=== PATIENT | female | born 1990 | race Caucasian/White ===

== ENCOUNTER 2021-12-15 12:40 | Inpatient (IN) | payer OTHER, SELFPAY ==
[2021-12-15 12:56] VITALS: BP 139/80; PULSE 77; RESP 16; TEMP 36.6; O2SAT 97; BMI 47.2
--- NOTE | 2021-12-15 13:35 | ED_ITS ---
HPI - General Adult General Chief complaint: Psychiatric Symptoms <LUIS Thomas - Last Filed: 12/15/21 16:41> Stated complaint: crisis <LUIS Thomas - Last Filed: 12/15/21 16:41> Time Seen by Provider: 12/15/21 13:33 <LUIS Thomas Last Filed: 12/15/21 16:41> Source: patient <LUIS Thomas Last Filed: 12/15/21 16:41> Mode of arrival: ambulatory <LUIS Thomas Last Filed: 12/15/21 16:41> Limitations: no limitations <LUIS Thomas Last Filed: 12/15/21 16:41> History of Present Illness HPI narrative: Patient is a 31 year old assigned female with a history of depression presenting to the emergency department today with recent recurrent thoughts of self-harm. Patient states that lately she has been having an increase in frequency of thoughts about harming herself. Patient states that she could never do it because of her son but she called crisis and they recommended she come to the ER. Patient states that she would like to be evaluated on an inpatient basis. Patient denies any dizziness, lightheadedness, abdominal pain, nausea, vomiting, fever, chills, blurry vision, double vision, loss of vision, chest pain, difficulty breathing, shortness of breath, back pain, night sweats, pain with urination, increased urinary frequency, increased urinary urgency, blood in her urine or stool, syncope or a near syncopal episode, recent trauma or falls, bowel incontinence, bladder incontinence, bowel retention, bladder retention, or any other complaints at this time. <LUIS Thomas - Last Filed: 12/15/21 16:41> Onset (ago): day(s) <LUIS Thomas - Last Filed: 12/15/21 16:41> Severity: moderate <LUIS Thomas Last Filed: 12/15/21 16:41> Severity scale (1-10): 6 <LUIS Thomas Last Filed: 12/15/21 16:41> Relieving factors: none <LUSI Thomas Last Filed: 12/15/21 16:41> Exacerbating factors: none <LUIS Thomas Last Filed: 12/15/21 16:41> Associated symptoms: denies other symptoms <LUIS Thomas Last Filed: 12/15/21 16:41> Treatments prior to arrival: none <LUIS Thomas Last Filed: 12/15/21 16:41> Related Data Home medications: Home Medications Medication Instructions Recorded Confirmed acetazolamide 250 mg tablet 125 mg PO QAM 12/15/21 12/15/21 acetazolamide 250 mg tablet 250 mg PO 1700 12/15/21 12/15/21 dextroamphetamine-amphetamine ER 1 cap PO QAM 12/15/21 12/15/21 20 mg 24hr capsule,extend release (Adderall XR) lisdexamfetamine 70 mg capsule 1 cap PO QAM 12/15/21 12/15/21 (Vyvanse) lorazepam 1 mg tablet 0.5 - 1 tab PO DAILY PRN anxiety 12/15/21 12/15/21 attack pantoprazole 40 mg tablet,delayed 0.5 tab PO BID 12/15/21 12/15/21 release <LUIS Thomas Last Filed: 12/15/21 16:41> Allergies/adverse reactions: Allergies Allergy/AdvReac Type Severity Reaction Status Date / Time lamotrigine [From LAMICTAL] Allergy Unknown RASH Unverified 11/21/19 17:55 Sulfa (Sulfonamide Allergy Unknown UNKNOWN, Unverified 11/21/19 17:55 Antibiotics) hives [SULFA (SULFONAMIDE ANTIBIOTICS)] From NOVOCAIN Allergy Severe HIVES Uncoded 11/21/19 17:55 Novocain Allergy Unknown hives Uncoded 04/16/19 00:00 <LUIS Thomas Last Filed: 12/15/21 16:41> Review of Systems Constitutional: Constitutional: Reports no additional constitutional complaints, Denies chills, Denies fever(s) and Denies night sweats <LUIS Thomas Last Filed: 12/15/21 16:41> Eyes: Eyes: Reports no additional eye complaints, Denies blurry vision, Denies change in vision, Denies diplopia, Denies eye discharge, Denies loss of vision and Denies eye pain <LUIS Thomas Last Filed: 12/15/21 16:41> ENT: Denies dizziness <LUIS Thomas - Last Filed: 12/15/21 16:41> Cardiovascular: Cardiovascular: Reports no additional cardiovascular complaints, Denies chest pain, Denies lightheadedness, Denies Loss of Consciousness and Denies dyspnea <LUIS Thomas - Last Filed: 12/15/21 16:41> Respiratory: Respiratory: Reports no additional respiratory complaints and Denies dyspnea <LUIS Thomas - Last Filed: 12/15/21 16:41> Gastrointestinal: Gastrointestinal: Reports no additional gastrointestinal complaints, Denies abdominal pain, Denies melena, Denies hematochezia, Denies change in bowel habits and Denies change in stool character <LUIS Thomas - Last Filed: 12/15/21 16:41> Genitourinary: Genitourinary: Denies hematuria, Denies urinary frequency, Denies dysuria, Denies urinary incontinence, Denies urinary hesitancy and Denies urinary urgency <LUIS Thomas - Last Filed: 12/15/21 16:41> Musculoskeletal: Musculoskeletal: Reports no additional musculoskeletal complaints, Denies numbness and Denies tingling <LUIS Thomas - Last Filed: 12/15/21 16:41> Neurologic: Denies dizziness, Denies loss of vision, Denies numbness and Denies tingling <LUIS Thomas - Last Filed: 12/15/21 16:41> Psychiatric: Psychiatric: Reports no additional psychiatric complaints and Reports suicidal ideation <LUIS Thomas Last Filed: 12/15/21 16:41> Endocrine: Endocrine: Reports no additional endocrine complaints <LUIS Thomas - Last Filed: 12/15/21 16:41> Hematologic/Lymphatic: Hematologic/Lymphatic: Reports no additional hemat ologic/lymphatic complaints <LUIS Thomas - Last Filed: 12/15/21 16:41> Allergic/Immunologic: Allergic/Immunologic: Reports no additional allergic/immunologic complaints <LUIS Thomas Last Filed: 12/15/21 16:41> PMFSH Past Medical History Attestation statement: The following information was validated with the patient. <LUIS Thomas - Last Filed: 12/15/21 16:41> Source: old records reviewed <LUIS Thomas - Last Filed: 12/15/21 16:41> Medical History: Medical History Acid reflux ADHD Anxiety Bipolar 1 disorder Depression PTSD (post-traumatic stress disorder) <LUIS Thomas - Last Filed: 12/15/21 16:41> Social History Social History: Social History Alcohol intake: never Patient Tobacco Use Status: Current everyday Tobacco user Smoked in Last 30 Days: No Use of substances other than those prescribed or required for medical reasons: Yes Substance Use Type: IV Drugs Substance Use Frequency: Occasionally Advance Directives: No Healthcare Proxy: No Guardian: No <LUIS Thomas - Last Filed: 12/15/21 16:41> Physical Exam ED Vital Signs: Vital Signs - 24 hr 12/15/21 12:56 12/15/21 14:42 12/15/21 16:00 Temperature 97.9 F 98.1 F 98.0 F Pulse Rate 77 81 83 Respiratory Rate 16 16 16 Blood Pressure 139/80 147/92 H 131/75 Pulse Oximetry 97 97 97 Oxygen Delivery Method Room Air Room Air Room Air 12/15/21 18:00 12/16/21 00:51 Temperature 98.4 F 97.7 F Pulse Rate 73 63 Respiratory Rate 16 16 Blood Pressure 134/74 122/71 Pulse Oximetry 99 98 Oxygen Delivery Method Room Air Room Air BMI result Body Mass Index 47.2 <LUIS Thomas - Last Filed: 12/15/21 16:41> Vital Signs - 24 hr 12/15/21 12:56 12/15/21 14:42 12/15/21 16:00 Temperature 97.9 F 98.1 F 98.0 F Pulse Rate 77 81 83 Respiratory Rate 16 16 16 Blood Pressure 139/80 147/92 H 131/75 Pulse Oximetry 97 97 97 Oxygen Delivery Method Room Air Room Air Room Air 12/15/21 18:00 12/16/21 00:51 Temperature 98.4 F 97.7 F Pulse Rate 73 63 Respiratory Rate 16 16 Blood Pressure 134/74 122/71 Pulse Oximetry 99 98 Oxygen Delivery Method Room Air Room Air BMI result Body Mass Index 47.2 <Janel Nettles MD - Last Filed: 12/16/21 07:09> Const General: cooperative, no acute distress, alert and awake <LUIS Thomas - Last Filed: 12/15/21 16:41> Nutritional Appearance: well nourished <LUIS Thomas - Last Filed: 12/15/21 16:41> Orientation/consciousness: patient oriented x3 <LUIS Thomas - Last Filed: 12/15/21 16:41> Limitations: no limitations <LUIS Thomas - Last Filed: 12/15/21 16:41> HENMT Head: Yes normal to inspection and Yes atraumatic <LUIS Thomas - Last Filed: 12/15/21 16:41> Ears: hearing grossly normal bilaterally and external ears normal <LUIS Thomas - Last Filed: 12/15/21 16:41> General nose exam: Normal external nose present, no nasal discharge noted and no epistaxis <LUIS Thomas - Last Filed: 12/15/21 16:41> Face and sinus: Yes normal facial exam, No abrasion and No laceration <LUIS Thomas - Last Filed: 12/15/21 16:41> Mouth: Normal oral and palatal mucosa present, no drooling and no muffled voice <LUIS Thomas - Last Filed: 12/15/21 16:41> Eyes General: appearance normal, both eyes and all related structures <LUIS Thomas - Last Filed: 12/15/21 16:41> Periorbital: periorbital findings normal <LUIS Thomas - Last Filed: 12/15/21 16:41> Eyelids: Yes eyelids normal <LUIS Thomas - Last Filed: 12/15/21 16:41> Conjunctivae: conjunctivae normal <LUIS Thomas - Last Filed: 12/15/21 16:41> Pupils: Equal, round and reactive pupils present <LUIS Thomas - Last Filed: 12/15/21 16:41> EOM: EOMs intact bilaterally <LUIS Thomas - Last Filed: 12/15/21 16:41> Neck Neck: Yes normal visual inspection, Yes full ROM and Yes no lymphadenopathy <Carmencita Welch PA - Last Filed: 12/15/21 16:41> Chest Chest palpation & inspection: normal inspection of the chest <Carmencita Welch PA - Last Filed: 12/15/21 16:41> Resp Effort & Inspection: normal respiratory effort and able to speak in complete sentences <Carmencita Welch PA - Last Filed: 12/15/21 16:41> Auscultation: clear to auscultation bilaterally <Carmencita Welch PA - Last Filed: 12/15/21 16:41> Cardio Rate: regular rate <Carmencita Welch PA - Last Filed: 12/15/21 16:41> Rhythm: regular rhythm <Carmencita Welch PA - Last Filed: 12/15/21 16:41> GI Inspection: Yes normal to inspection <Carmencita Welch PA - Last Filed: 12/15/21 16:41> Neuro General: patient oriented x3 and moves all extremities <Carmencita Welch PA - Last Filed: 12/15/21 16:41> Cranial nerves: Yes Equal, round and reactive pupils present <Carmencita Welch PA - Last Filed: 12/15/21 16:41> Cognition (Neuro): normal cognition <Carmencita Welch PA - Last Filed: 12/15/21 16:41> Motor exam (neuro): 5/5 motor strength present throughout <Carmencita Welch PA - Last Filed: 12/15/21 16:41> Sensory Exam: Normal double simultaneous stimulation for sensation <Carmencita Welch PA - Last Filed: 12/15/21 16:41> Coordination: [id number] test normal <Carmencita Welch PA - Last Filed: 12/15/21 16:41> Extrem General: Yes normal to inspection, Yes full ROM and Yes capillary refill normal <Carmencita Welch PA - Last Filed: 12/15/21 16:41> Psych Appearance: grossly normal <Carmencita Welch PA - Last Filed: 12/15/21 16:41> Mental Status: mental status grossly normal <Carmencita WelchLUIS - Last Filed: 12/15/21 16:41> Affect: normal affect <LUIS Thomas - Last Filed: 12/15/21 16:41> Attitude: cooperative <LUIS Thomas - Last Filed: 12/15/21 16:41> Thought process: Normal thought process present <LUIS hTomas - Last Filed: 12/15/21 16:41> Thought content: Depressive thoughts present <LUIS Thomas - Last Filed: 12/15/21 16:41> Insight: Good insight present (Psych) <LUIS Thomas - Last Filed: 12/15/21 16:41> Course Reevaluation(s) Reevaluation #1: 31-year-old female with presentation for depression, crisis, on a Section 12, awaiting behavioral evaluation, no acute events overnight. Continue physician observation. <Janel Nettles MD - Last Filed: 12/16/21 07:09> Time: 07:08 <Janel Nettles MD - Last Filed: 12/16/21 07:09> Medical Decision Making MDM Narrative Medical decision making narrative: Patient is a 31 year old assigned female with a history of depression presenting to the emergency department today with increased depression and thoughts of harming herself. Patient's physical exam was unremarkable. Patient's blood work was unremarkable. I explained my physical exam findings as well as a ll test results to the patient. I answered all questions asked by the patient. Patient was evaluated by the CARE team who recommended inpatient admission which the patient agreed with. <LUIS Thomas - Last Filed: 12/15/21 16:41> Medical Records Medical records reviewed: Yes I reviewed the patient's medical records. <LUIS Thomas - Last Filed: 12/15/21 16:41> Lab Data Lab results reviewed: Yes I reviewed the patient's lab results. <LUIS Thomas - Last Filed: 12/15/21 16:41> Result diagrams: : 12/15/21 13:53 12/15/21 13:53 <LUIS Thomas - Last Filed: 12/15/21 16:41> Labs: Lab Results 12/15/21 12/15/21 12/15/21 Range/Units 13:53 13:53 14:21 WBC 10.5 (4.8-10.8) X10*3/uL RBC 4.37 (4.20-5.50) X10*6/uL Hgb 12.6 (12.0-16.0) g/dl Hct 38.4 (37.0-47.0) % MCV 87.9 (80.0-98.0) fL MCH 28.8 (27.0-33.0) pg MCHC 32.8 (31.0-35.0) g/dl RDW 14.3 (11.0-16.0) % Plt Count 316 (160-400) X10*3/uL MPV 9.3 L (9.4-12.3) fL Immature Gran % (Auto) 0.2 (0.0-0.4) % Neut % (Auto) 64.5 (45-73) % Lymph % (Auto) 26.9 (20-40) % Braxton % (Auto) 5.1 (2-11) % Eos % (Auto) 2.8 (0-4) % Baso % (Auto) 0.5 (0-2) % Lymph # (Auto) 2.8 (1.2-4.9) X10*3/uL Braxton # (Auto) 0.5 (0.1-1.2) X10*3/uL Eos # (Auto) 0.3 (0.0-0.4) X10*3/uL Baso # (Auto) 0.1 (0.0-0.2) X10*3/uL Abs Immat Gran (auto) 0.02 (0.00-0.03) X10*3/uL Absolute Neuts (auto) 6.8 (2.0-8.3) x10*3/uL Absolute Nucleated RBC 0.000 (0.0-0.012) X10*3/uL Nucleated RBC % (auto) 0.0 (0.0-0.2) /100WBC Sodium 141 (135-145) mmol/L Potassium 3.9 (3.3-5.1) mmol/L Chloride 105 (96-108) mmol/L Carbon Dioxide 24 (22-29) mmol/L Anion Gap 16 (12-20) BUN 7 L (9-16) mg/dL Creatinine 0.82 (0.5-1.4) mg/dL Estim Creat Clear Calc 117.2 Estimated GFR > 60 Random Glucose 106 (60-115) mg/dL Calcium 9.6 (8.4-10.2) mg/dL Total Bilirubin 0.2 (0.0-1.0) mg/dL AST 13 (5-31) U/L ALT 13 (0-31) U/L Alkaline Phosphatase 113 (39-117) U/L Total Protein 7.3 (6.5-8.0) g/dL Albumin 4.0 (3.5-5.0) g/dL Urine Color Urine Appearance Urine pH (5.0-9.0) Ur Specific [place] (1.005-1.025) Urine Protein (Neg-Trace) mg/dL Urine Glucose (UA) (Negative) mg/dL Urine Ketones (Negative) mg/dL Urine Blood (Negative) Urine Nitrite (Negative) Ur Leukocyte Esterase (Negative) Urine RBC (0-2) /HPF Urine WBC (0-5) /HPF Ur Squamous Epith Cells (0-2) /HPF Urine Bacteria (None Seen) Hyaline Casts (0-2) /LPF Urine Test (NEGATIVE) Salicylates < 5.0 L (15-30) mg/dL Urine Opiates Screen Not Detected (Not Detect) Urine Fentanyl Screen Not Detected (Not Detect) Acetaminophen < 1 (<30) mcg/mL Ur Barbiturates Screen Not Detected (Not Detect) Ur Phencyclidine Scrn Not Detected (Not Detect) Ur Amphetamines Screen POSITIVE H (Not Detect) U Benzodiazepines Scrn Not Detected (Not Detect) Urine Cocaine Screen Not Detected (Not Detect) U Marijuana (THC) Screen Not Detected (Not Detect) Ethyl Alcohol < 10 mg/dL COVID-19 ([facility]) (Negative) COVID-19 Clin Com 12/15/21 12/15/21 12/15/21 Range/Units 14:28 14:28 20:02 WBC (4.8-10.8) X10*3/uL RBC (4.20-5.50) X10*6/uL Hgb (12.0-16.0) g/dl Hct (37.0-47.0) % MCV (80.0-98.0) fL MCH (27.0-33.0) pg MCHC (31.0-35.0) g/dl RDW (11.0-16.0) % Plt Count (160-400) X10*3/uL MPV (9.4-12.3) fL Immature Gran % (Auto) (0.0-0.4) % Neut % (Auto) (45-73) % Lymph % (Auto) (20-40) % Braxton % (Auto) (2-11) % Eos % (Auto) (0-4) % Baso % (Auto) (0-2) % Lymph # (Auto) (1.2-4.9) X10*3/uL Braxton # (Auto) (0.1-1.2) X10*3/uL Eos # (Auto) (0.0-0.4) X10*3/uL Baso # (Auto) (0.0-0.2) X10*3/uL Abs Immat Gran (auto) (0.00-0.03) X10*3/uL Absolute Neuts (auto) (2.0-8.3) x10*3/uL Absolute Nucleated RBC (0.0-0.012) X10*3/uL Nucleated RBC % (auto) (0.0-0.2) /100WBC Sodium (135-145) mmol/L Potassium (3.3-5.1) mmol/L Chloride (96-108) mmol/L Carbon Dioxide (22-29) mmol/L Anion Gap (12-20) BUN (9-16) mg/dL Creatinine (0.5-1.4) mg/dL Estim Creat Clear Calc Estimated GFR Random Glucose (60-115) mg/dL Calcium (8.4-10.2) mg/dL Total Bilirubin (0.0-1.0) mg/dL AST (5-31) U/L ALT (0-31) U/L Alkaline Phosphatase (39-117) U/L Total Protein (6.5-8.0) g/dL Albumin (3.5-5.0) g/dL Urine Color Yellow Urine Appearance Turbid Urine pH 6.0 (5.0-9.0) Ur Specific [place] 1.020 (1.005-1.025) Urine Protein Trace (Neg-Trace) mg/dL Urine Glucose (UA) Negative (Negative) mg/dL Urine Ketones Negative (Negative) mg/dL Urine Blood Negative (Negative) Urine Nitrite Negative (Negative) Ur Leukocyte Esterase Large (3+) H (Negative) Urine RBC 3-5 H (0-2) /HPF Urine WBC 21-50 H (0-5) /HPF Ur Squamous Epith Cells >20 (0-2) /HPF Urine Bacteria 4+ (None Seen) Hyaline Casts 3-5 (0-2) /LPF Urine Test NEGATIVE (NEGATIVE) Salicylates (15-30) mg/dL Urine Opiates Screen (Not Detect) Urine Fentanyl Screen (Not Detect) Acetaminophen (<30) mcg/mL Ur Barbiturates Screen (Not Detect) Ur Phencyclidine Scrn (Not Detect) Ur Amphetamines Screen (Not Detect) U Benzodiazepines Scrn (Not Detect) Urine Cocaine Screen (Not Detect) U Marijuana (THC) Screen (Not Detect) Ethyl Alcohol mg/dL COVID-19 ([facility]) Negative (Negative) COVID-19 Clin Com See Note <LUIS Thomas - Last Filed: 12/15/21 16:41> Lab Results 12/15/21 12/15/21 12/15/21 Range/Units 13:53 13:53 14:21 WBC 10.5 (4.8-10.8) X10*3/uL RBC 4.37 (4.20-5.50) X10*6/uL Hgb 12.6 (12.0-16.0) g/dl Hct 38.4 (37.0-47.0) % MCV 87.9 (80.0-98.0) fL MCH 28.8 (27.0-33.0) pg MCHC 32.8 (31.0-35.0) g/dl RDW 14.3 (11.0-16.0) % Plt Count 316 (160-400) X10*3/uL MPV 9.3 L (9.4-12.3) fL Immature Gran % (Auto) 0.2 (0.0-0.4) % Neut % (Auto) 64.5 (45-73) % Lymph % (Auto) 26.9 (20-40) % Braxton % (Auto) 5.1 (2-11) % Eos % (Auto) 2.8 (0-4) % Baso % (Auto) 0.5 (0-2) % Lymph # (Auto) 2.8 (1.2-4.9) X10*3/uL Braxton # (Auto) 0.5 (0.1-1.2) X10*3/uL Eos # (Auto) 0.3 (0.0-0.4) X10*3/uL Baso # (Auto) 0.1 (0.0-0.2) X10*3/uL Abs Immat Gran (auto) 0.02 (0.00-0.03) X10*3/uL Absolute Neuts (auto) 6.8 (2.0-8.3) x10*3/uL Absolute Nucleated RBC 0.000 (0.0-0.012) X10*3/uL Nucleated RBC % (auto) 0.0 (0.0-0.2) /100WBC Sodium 141 (135-145) mmol/L Potassium 3.9 (3.3-5.1) mmol/L Chloride 105 (96-108) mmol/L Carbon Dioxide 24 (22-29) mmol/L Anion Gap 16 (12-20) BUN 7 L (9-16) mg/dL Creatinine 0.82 (0.5-1.4) mg/dL Estim Creat Clear Calc 117.2 Estimated GFR > 60 Random Glucose 106 (60-115) mg/dL Calcium 9.6 (8.4-10.2) mg/dL Total Bilirubin 0.2 (0.0-1.0) mg/dL AST 13 (5-31) U/L ALT 13 (0-31) U/L Alkaline Phosphatase 113 (39-117) U/L Total Protein 7.3 (6.5-8.0) g/dL Albumin 4.0 (3.5-5.0) g/dL Urine Color Urine Appearance Urine pH (5.0-9.0) Ur Specific [place] (1.005-1.025) Urine Protein (Neg-Trace) mg/dL Urine Glucose (UA) (Negative) mg/dL Urine Ketones (Negative) mg/dL Urine Blood (Negative) Urine Nitrite (Negative) Ur Leukocyte Esterase (Negative) Urine RBC (0-2) /HPF Urine WBC (0-5) /HPF Ur Squamous Epith Cells (0-2) /HPF Urine Bacteria (None Seen) Hyaline Casts (0-2) /LPF Urine Test (NEGATIVE) Salicylates < 5.0 L (15-30) mg/dL Urine Opiates Screen Not Detected (Not Detect) Urine Fentanyl Screen Not Detected (Not Detect) Acetaminophen < 1 (<30) mcg/mL Ur Barbiturates Screen Not Detected (Not Detect) Ur Phencyclidine Scrn Not Detected (Not Detect) Ur Amphetamines Screen POSITIVE H (Not Detect) U Benzodiazepines Scrn Not Detected (Not Detect) Urine Cocaine Screen Not Detected (Not Detect) U Marijuana (THC) Screen Not Detected (Not Detect) Ethyl Alcohol < 10 mg/dL COVID-19 ([facility]) (Negative) COVID-19 Clin Com 12/15/21 12/15/21 12/15/21 Range/Units 14:28 14:28 20:02 WBC (4.8-10.8) X10*3/uL RBC (4.20-5.50) X10*6/uL Hgb (12.0-16.0) g/dl Hct (37.0-47.0) % MCV (80.0-98.0) fL MCH (27.0-33.0) pg MCHC (31.0-35.0) g/dl RDW (11.0-16.0) % Plt Count (160-400) X10*3/uL MPV (9.4-12.3) fL Immature Gran % (Auto) (0.0-0.4) % Neut % (Auto) (45-73) % Lymph % (Auto) (20-40) % Braxton % (Auto) (2-11) % Eos % (Auto) (0-4) % Baso % (Auto) (0-2) % Lymph # (Auto) (1.2-4.9) X10*3/uL Braxton # (Auto) (0.1-1.2) X10*3/uL Eos # (Auto) (0.0-0.4) X10*3/uL Baso # (Auto) (0.0-0.2) X10*3/uL Abs Immat Gran (auto) (0.00-0.03) X10*3/uL Absolute Neuts (auto) (2.0-8.3) x10*3/uL Absolute Nucleated RBC (0.0-0.012) X10*3/uL Nucleated RBC % (auto) (0.0-0.2) /100WBC Sodium (135-145) mmol/L Potassium (3.3-5.1) mmol/L Chloride (96-108) mmol/L Carbon Dioxide (22-29) mmol/L Anion Gap (12-20) BUN (9-16) mg/dL Creatinine (0.5-1.4) mg/dL Estim Creat Clear Calc Estimated GFR Random Glucose (60-115) mg/dL Calcium (8.4-10.2) mg/dL Total Bilirubin (0.0-1.0) mg/dL AST (5-31) U/L ALT (0-31) U/L Alkaline Phosphatase (39-117) U/L Total Protein (6.5-8.0) g/dL Albumin (3.5-5.0) g/dL Urine Color Yellow Urine Appearance Turbid Urine pH 6.0 (5.0-9.0) Ur Specific [place] 1.020 (1.005-1.025) Urine Protein Trace (Neg-Trace) mg/dL Urine Glucose (UA) Negative (Negative) mg/dL Urine Ketones Negative (Negative) mg/dL Urine Blood Negative (Negative) Urine Nitrite Negative (Negative) Ur Leukocyte Esterase Large (3+) H (Negative) Urine RBC 3-5 H (0-2) /HPF Urine WBC 21-50 H (0-5) /HPF Ur Squamous Epith Cells >20 (0-2) /HPF Urine Bacteria 4+ (None Seen) Hyaline Casts 3-5 (0-2) /LPF Urine Test NEGATIVE (NEGATIVE) Salicylates (15-30) mg/dL Urine Opiates Screen (Not Detect) Urine Fentanyl Screen (Not Detect) Acetaminophen (<30) mcg/mL Ur Barbiturates Screen (Not Detect) Ur Phencyclidine Scrn (Not Detect) Ur Amphetamines Screen (Not Detect) U Benzodiazepines Scrn (Not Detect) Urine Cocaine Screen (Not Detect) U Marijuana (THC) Screen (Not Detect) Ethyl Alcohol mg/dL COVID-19 ([facility]) Negative (Negative) COVID-19 Clin Com See Note <Janel Nettles MD - Last Filed: 12/16/21 07:09> Discharge Plan Discharge Clinical Impression: Depression <LUIS Thomas - Last Filed: 12/15/21 16:41> Patient Disposition: Still a Patient <LUIS Thomas - Last Filed: 12/15/21 16:41> Prescriptions: No Action acetazolamide 250 mg tablet 125 mg PO QAM dextroamphetamine-amphetamine [Adderall XR] 20 mg capsule,extended release 24hr 1 cap PO QAM pantoprazole 40 mg tablet,delayed release (DR/EC) 0.5 tab PO BID lorazepam 1 mg tablet 0.5 - 1 tab PO DAILY PRN (Reason: anxiety attack) Vyvanse 70 mg capsule 1 cap PO QAM acetazolamide 250 mg tablet 250 mg PO 1700 <LUIS Thomas - Last Filed: 12/15/21 16:41>
[2021-12-15 14:05] LABS: MANUAL DIFF FLAG NO
[2021-12-15 14:07] LABS: Basophils Absolute Auto 0.1 X10*3/uL (0.0-0.2); Basophils Percent Auto 0.5 % (0-2); Eosinophils Absolute Auto 0.3 X10*3/uL (0.0-0.4); Eosinophils Percent Auto 2.8 % (0-4); Hematocrit 38.4 % (37.0-47.0); Hemoglobin 12.6 g/dl (12.0-16.0); Imm Gran Abs Auto 0.02 X10*3/uL (0.00-0.03); Imm Gran Pct Auto 0.2 % (0.0-0.4); Lymphocytes Absolute Auto 2.8 X10*3/uL (1.2-4.9); Lymphocytes Percent Auto 26.9 % (20-40); Mean Corpuscular HGB Conc 32.8 g/dl (31.0-35.0); Mean Corpuscular Hemoglobin 28.8 pg (27.0-33.0); Mean Corpuscular Volume 87.9 fL (80.0-98.0); Mean Platelet Volume 9.3 fL (9.4-12.3); Monocytes Absolute Auto 0.5 X10*3/uL (0.1-1.2); Monocytes Percent Auto 5.1 % (2-11); Neutrophils Absolute Auto 6.8 x10*3/uL (2.0-8.3); Neutrophils Percent Auto 64.5 % (45-73); Platelet Count 316 X10*3/uL (160-400); Red Blood Count 4.37 X10*6/uL (4.20-5.50); Red Cell Distribution Width 14.3 % (11.0-16.0); White Blood Count 10.5 X10*3/uL (4.8-10.8)
[2021-12-15 14:20] LABS: Acetaminophen LAB < 1 mcg/mL (<30); Alanine Aminotransferase 13 U/L (0-31); Alkaline Phosphatase 113 U/L (39-117); Anion Gap 16 (12-20); Aspartate Amino Transferase 13 U/L (5-31); Bilirubin Total 0.2 mg/dL (0.0-1.0); Blood Urea Nitrogen 7 mg/dL (9-16); Calcium 9.6 mg/dL (8.4-10.2); Carbon Dioxide 24 mmol/L (22-29); Chloride 105 mmol/L (96-108); Creatinine Clr Calc Pharmacy 117.2; Estimated Glomerular Filt Rate > 60; Ethanol < 10 mg/dL; Glucose Random 106 mg/dL (60-115); Potassium 3.9 mmol/L (3.3-5.1); Salicylate < 5.0 mg/dL (15-30); Sodium 141 mmol/L (135-145); Total Protein 7.3 g/dL (6.5-8.0)
[2021-12-15 14:42] VITALS: BP 147/92; PULSE 81; RESP 16; TEMP 36.7; O2SAT 97
[2021-12-15 14:43] LABS: Amphetamine Screen Urine POSITIVE (Not Detect); Barbiturates, Urine Not Detected (Not Detect); Benzodiazepines Screen Urine Not Detected (Not Detect); Cannabinoid Screen Urine Not Detected (Not Detect); Cocaine Screen Urine Not Detected (Not Detect); Fentanyl, urine Not Detected (Not Detect); Opiate Screen Urine Not Detected (Not Detect); Phencyclidine Screen Urine Not Detected (Not Detect)
--- NOTE | 2021-12-15 14:46 | PC.NURSE ---
patient a&ox3, no c/o pain or discomfort, vss, 1:1 sitter at bedside, pt calm/compliant reading a book, pt states they had thoughts of si without a plan, pt changed over by security, belongings locked up, pts hearing aids are charging, will continue to monitor
--- NOTE | 2021-12-15 15:31 | PC.NURSE ---
care team at bedside to see patient
[2021-12-15 16:00] VITALS: BP 131/75; PULSE 83; RESP 16; TEMP 36.7; O2SAT 97
--- NOTE | 2021-12-15 16:23 | PC.NURSE ---
patient a&ox3, calm/compliant, vss, pt reading, 1:1 sitter, call lira within reach, will continue to monitor.
--- NOTE | 2021-12-15 17:27 | MHC.CARE ---
Pt was seen by the CARE Team and made an inpatient bedsearch
--- NOTE | 2021-12-15 17:55 | MHC.CARE ---
Smart sheet submitted
[2021-12-15 18:00] VITALS: BP 134/74; PULSE 73; RESP 16; TEMP 36.9; O2SAT 99
[2021-12-15 20:13] LABS: Appearance Urine Turbid; Color Urine Yellow; Glucose Urine UA Negative (Negative); Leukocyte Esterase Urine Large (3+) (Negative); Nitrite Urine Negative (Negative); UMIC TRIGGER UA YES; Urine Blood Negative (Negative); Urine Ketones Negative (Negative); Urine Protein Trace mg/dL (Neg-Trace)
[2021-12-15 20:14] LABS: UPreg QC Valid YES; Urine Pregnancy NEGATIVE (NEGATIVE)
[2021-12-15 20:18] LABS: Bacteria Urine 4+ (None Seen); Squamous Epithelial Cell Urine >20 /HPF (0-2); WBC Urine 21-50 /HPF (0-5)
[2021-12-15 20:33] LABS: COVID-19 Test Negative (Negative)
--- NOTE | 2021-12-15 22:37 | PC.NURSE ---
Patient was admitted to room 5 for observation, she was pleasant, cooperative, no distress noted. Will continue to monitor.
[2021-12-16 00:51] VITALS: BP 122/71; PULSE 63; RESP 16; TEMP 36.5; O2SAT 98
--- NOTE | 2021-12-16 06:47 | PC.NURSE ---
Patient sleeping comfortably, no distress noted. will continue to monitor.
[2021-12-16] MEDS: Dextroamphetamine/Amphetamine XR 10 MG CAP.ER.24H 20 MG PO (08:50)
[2021-12-16] MEDS: Omeprazole 20 MG CAPSULE.DR PO ×2 (08:50→21:43)
[2021-12-16] MEDS: acetaZOLAMIDE 250 MG TABLET 125 MG PO (09:02)
[2021-12-16] MEDS: Acetaminophen 325 MG TABLET 975 MG PO (09:13)
[2021-12-16] MEDS: buPROPion HCl XL 150 MG TAB.ER.24H PO (10:17)
--- NOTE | 2021-12-16 11:46 | PC.NURSE ---
rn to rn report given to yohana mcclellan aware of plan of care for transfer to [facility] later today.
[2021-12-16] MEDS: Nicotine 21 MG PATCH.TD24 TRANSDERMA (13:15)
[2021-12-16 13:34] VITALS: BP 130/77; PULSE 66; RESP 16; TEMP 36.3; O2SAT 97
[2021-12-16 16:45] VITALS: BP 128/80; PULSE 75; RESP 16; TEMP 36.4; O2SAT 98
--- NOTE | 2021-12-16 17:15 | HO.PSYADMNOT ---
HPI Date of Service: 12/16/21 Chief Complaint: psychosis Sources of Information: patient interviewed, chart reviewed and crisis/core team assessment reviewed HPI Subjective Notes: Phillips Warning and Conditional Voluntary Healthcare Proxy: No Guardianship: No Medical Problems Affecting Mental Status: No Narrative: Nila is a 31 y.o. female who carries a dx of PTSD, MDD recurrent. She presented to [facility] due to recent recurrent thoughts of self-harm. Remote hx of IPLOC, last time was 10 yrs ago. Precipitating fx include that she and her bf and son (age 2) were recently kicked out of her mom?s house where they were staying after she had a ?huge fight? with her, now staying with her bf?s mom but there is not as much room there. No substance use or alcohol abuse. I spoke with pt this evening. She reports she stopped taking her prozac and latuda 2 months ago due to ?bad side effects,? i.e. prozac caused bruxism and latuda ?made me feel really glitchy.? Says she had to move out of her mom?s house last Monday because she was making allegations against her and threatening to call [facility], which ?culminated in a huge fight.? She reports her anxiety and depression can be ?debilitating,? i.e. only gets out of bed to help care for her son. Her bf is helpful and a good support. She reports taking vyvanse 70 mg in the morning and 20 mg booster in the afternoon, ?those meds help significantly,? has noticed ?it does help with my mood.? Pt does not endorse manic or hypomanic episodes. Says she experiences ?mainly severe depression to a less severe depression.? She gets irritable, ?very agitated almost at nothing.? No aggression, ?very quick to snap? at for ?stupid things,? i.e. his tone of voice. Denies hallucinations. Reports hypersomnia, ?I can sleep like a champ,? daytime energy is low. Denies current SI, says she feels safe. Past Psychiatric History: -Remote hx of IPLOC, last at [place] age 21 -Reports hx of seasonal affective do, says her OP provider Ravinder Umaña will increase her bupropion to 300 mg during winter months but she has not really noticed a difference. -Past meds: lexapro (lack of efficacy, took the edge off), celexa (worked really well and then it just stopped working), cymbalta, zoloft (in childhood, unable to recall), lamictal (rash), trileptal (doesn?t remember effects), seroquel (in childhood), trazodone (too sedating), risperdal (?made me crazy?). Medical Evaluation Reviewed: Yes [facility] Medical History (Updated 12/17/21 @ 05:47 by Any Sosa NP) Acid reflux ADHD Anxiety Bipolar 1 disorder Depression PTSD (post-traumatic stress disorder) Narrative: -Pt reports she has pseudotumor cerebri syndrome, diagnosed in 2012, causes nerve pain, headaches, has had almost 20 spinal taps. Migraines are less frequent on diamox. Social History: -Pt lives with her son (age 2, has autism, in E[place], head start), boyfriend (works as refractory products supervisor, together 5 yrs, father of her son), and boyfriend's mother. 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 Graduated high school. Diagnostics Vital Signs (24Hr): Vital Signs - 24 hr 12/15/21 18:00 12/16/21 00:51 12/16/21 13:34 Temperature 98.4 F 97.7 F 97.3 F Pulse Rate 73 63 66 Respiratory Rate 16 16 16 Blood Pressure 134/74 122/71 130/77 Pulse Oximetry 99 98 97 Oxygen Delivery Method Room Air Room Air Room Air 12/16/21 16:45 Temperature 97.6 F Pulse Rate 75 Respiratory Rate 16 Blood Pressure 128/80 Pulse Oximetry 98 Oxygen Delivery Method Room Air BMI result Body Mass Index 47.2 Labs Results: 12/15/21 13:53 12/15/21 13:53 Labs: Laboratory Results - last 48 hr 12/15/21 12/15/21 12/15/21 13:53 13:53 14:21 WBC 10.5 RBC 4.37 Hgb 12.6 Hct 38.4 MCV 87.9 MCH 28.8 MCHC 32.8 RDW 14.3 Plt Count 316 MPV 9.3 L Immature Gran % (Auto) 0.2 Neut % (Auto) 64.5 Lymph % (Auto) 26.9 [place] % (Auto) 5.1 Eos % (Auto) 2.8 Baso % (Auto) 0.5 Lymph # (Auto) 2.8 [place] # (Auto) 0.5 Eos # (Auto) 0.3 Baso # (Auto) 0.1 Abs Immat Gran (auto) 0.02 Absolute Neuts (auto) 6.8 Absolute Nucleated RBC 0.000 Nucleated RBC % (auto) 0.0 Sodium 141 Potassium 3.9 Chloride 105 Carbon Dioxide 24 Anion Gap 16 BUN 7 L Creatinine 0.82 Estim Creat Clear Calc 117.2 Estimated GFR > 60 Random Glucose 106 Calcium 9.6 Total Bilirubin 0.2 AST 13 ALT 13 Alkaline Phosphatase 113 Total Protein 7.3 Albumin 4.0 Urine Color Urine Appearance Urine pH Ur Specific [place] Urine Protein Urine Glucose (UA) Urine Ketones Urine Blood Urine Nitrite Ur Leukocyte Esterase Urine RBC Urine WBC Ur Squamous Epith Cells Urine Bacteria Hyaline Casts Urine Test Salicylates < 5.0 L Urine Opiates Screen Not Detected Urine Fentanyl Screen Not Detected Acetaminophen < 1 Ur Barbiturates Screen Not Detected Ur Phencyclidine Scrn Not Detected Ur Amphetamines Screen POSITIVE H U Benzodiazepines Scrn Not Detected Urine Cocaine Screen Not Detected U Marijuana (THC) Screen Not Detected Ethyl Alcohol < 10 COVID-19 ([facility]) COVID-19 Clin Com 12/15/21 12/15/21 12/15/21 14:28 14:28 20:02 WBC RBC Hgb Hct MCV MCH MCHC RDW Plt Count MPV Immature Gran % (Auto) Neut % (Auto) Lymph % (Auto) [place] % (Auto) Eos % (Auto) Baso % (Auto) Lymph # (Auto) [place] # (Auto) Eos # (Auto) Baso # (Auto) Abs Immat Gran (auto) Absolute Neuts (auto) Absolute Nucleated RBC Nucleated RBC % (auto) Sodium Potassium Chloride Carbon Dioxide Anion Gap BUN Creatinine Estim Creat Clear Calc Estimated GFR Random Glucose Calcium Total Bilirubin AST ALT Alkaline Phosphatase Total Protein Albumin Urine Color Yellow Urine Appearance Turbid Urine pH 6.0 Ur Specific [place] 1.020 Urine Protein Trace Urine Glucose (UA) Negative Urine Ketones Negative Urine Blood Negative Urine Nitrite Negative Ur Leukocyte Esterase Large (3+) H Urine RBC 3-5 H Urine WBC 21-50 H Ur Squamous Epith Cells >20 Urine Bacteria 4+ Hyaline Casts 3-5 Urine Test NEGATIVE Salicylates Urine Opiates Screen Urine Fentanyl Screen Acetaminophen Ur Barbiturates Screen Ur Phencyclidine Scrn Ur Amphetamines Screen U Benzodiazepines Scrn Urine Cocaine Screen U Marijuana (THC) Screen Ethyl Alcohol COVID-19 ([facility]) Negative COVID-19 Clin Com See Note Meds/Allergies Meds Home Medications Medication Instructions Recorded Confirmed Type acetazolamide 250 mg tablet 125 mg PO QAM 12/15/21 12/15/21 History acetazolamide 250 mg tablet 250 mg PO 1700 12/15/21 12/15/21 History dextroamphetamine-amphetamine ER 1 cap PO QAM 12/15/21 12/15/21 History 20 mg 24hr capsule,extend release (Adderall XR) lisdexamfetamine 70 mg capsule 1 cap PO QAM 12/15/21 12/15/21 History (Vyvanse) lorazepam 1 mg tablet 0.5 - 1 tab PO DAILY PRN anxiety 12/15/21 12/15/21 History attack pantoprazole 40 mg tablet,delayed 0.5 tab PO BID 12/15/21 12/15/21 History release bupropion HCl 150 mg 24 hr tablet, 1 tab PO QAM 12/16/21 12/16/21 History extended release Allergies Allergies Allergy/AdvReac Type Severity Reaction Status Date / Time lamotrigine [From LAMICTAL] Allergy Unknown RASH Unverified 11/21/19 17:55 Sulfa (Sulfonamide Allergy Unknown UNKNOWN, Unverified 11/21/19 17:55 Antibiotics) hives [SULFA (SULFONAMIDE ANTIBIOTICS)] From NOVOCAIN Allergy Severe HIVES Uncoded 11/21/19 17:55 Novocain Allergy Unknown hives Uncoded 04/16/19 00:00 Mental Status Exam Mental Status Exam Narrative: A&O. Well groomed, overweight, hospital attire, glasses. Good eye contact, attentive. No Tics or Tremors. No abnormal involuntary movements. Calm, cooperative, engaged. Non-pressured speech, spontaneous with regular rate and rhythm, normal volume and prosody. No prolonged speech latency or dysarthria. Mood is ?depressed,? affect is appropriate. Currently denies SI/SIB/HI upon inquiry. Denies A/VH or delusional thought content. Thoughts are coherent, organized. No known cognitive or memory impairment. Insight/ Judgment fair and adequate. Assessment & Plan Assessment & Plan (1) ADHD (attention deficit hyperactivity disorder): Status: Acute Code(s): F90.9 - Attention-deficit hyperactivity disorder, unspecified type (2) MDD (major depressive disorder), recurrent episode, moderate: Status: Acute Code(s): F33.1 - Major depressive disorder, recurrent, moderate Plan Nila is a 31 y.o. female who carries a dx of PTSD, MDD recurrent. She presented to [facility] due to recent recurrent thoughts of self-harm. Remote hx of IPLOC, last time was 10 yrs ago. Precipitating fx include that she and her bf and son (age 2) were recently kicked out of her mom?s house where they were staying after she had a ?huge fight? with her, now staying with her bf?s mom but there is not as much room there. Plan: Change vyvanse to adderall XR 30 mg daily due to hospital formulary. Pt reports hx of benefit on lexapro, celexa but stopped working over time. May consider venlafaxine, as she has not tried this. Pt has not trialed gabapentin, may help with nerve pain and agitation. Will defer to changes to primary psych team. Q15 min safety checks, CV Monitor response to medications. Monitor for safety in the milieu. Discharge on stabilization. Patient seen. Chart reviewed. Discussed with team. Obtain collateral contact info?as needed Patient educated on: diagnosis, medication risk/benefits and therapeutic strategies Reason for continued inpatient stay Substantial Risk for: harm to self and med/psych decompensation
--- NOTE | 2021-12-16 17:38 | PC.ADMIT ---
Patient is a 31 y/o ethiopian speaking female admitted to the unit after presenting to the ED for thoughts of self harm including SI. Patient was having thoughts of crashing car into something when driving. Pt's recent stresses are her mother just kicked her, her boyfriend and 2 y/o son out and they had to move into her boyfriends parents house. She is currently sleeping on the floor. Pt reports being in the hospital 10 years ago and recently has felt a fast decline which has her on an emotional roller coaster. Pt reports that when overwhelmed she goes into panic attacks. Pt also reports stopping several of her medications(Prozac and Latuda) 2 months ago because, they weren't working anymore. Pt is A&O X4, mood depressed with a range in affect, thought process is linear Pts been calm and cooperative during admission. Pt was admitted on a CV and her goal is to get medications stable. Pt reports being dx with Sleep Apnea, but stopped using CPAP a year ago, chronic back and hip pain, and migraines. Pt currently vapes nicotine and will use replacement. Pt reports her sleep is poor, but attributes this to working nights. Pt reports smoking Marijuana a couple times/week. Pt placed on 15 minute checks.
[2021-12-16] MEDS: acetaZOLAMIDE 250 MG TABLET PO (18:29)
[2021-12-16] MEDS: Acetaminophen 325 MG TABLET 650 MG PO (20:18)
[2021-12-16 20:51] VITALS: BP 142/74; PULSE 85; RESP 16; TEMP 36.5; O2SAT 100
[2021-12-16] MEDS: NaPROXEN 500 MG TABLET PO (21:43)
[2021-12-16] MEDS: traZODone HCL 50 MG TABLET PO (21:43)
[2021-12-17 06:00] VITALS: BP 126/59; PULSE 65; RESP 18; TEMP 36.6; O2SAT 99
[2021-12-17] MEDS: Nicotine 21 MG PATCH.TD24 TRANSDERMA (09:57)
[2021-12-17] MEDS: Dextroamphetamine/Amphetamine XR 10 MG CAP.ER.24H 30 MG PO (09:58)
[2021-12-17] MEDS: Omeprazole 20 MG CAPSULE.DR PO ×2 (09:58→22:01)
[2021-12-17] MEDS: buPROPion HCl XL 150 MG TAB.ER.24H PO (09:58)
[2021-12-17] MEDS: acetaZOLAMIDE 250 MG TABLET 125 MG PO (09:58)
[2021-12-17 10:01] LABS: Alanine Aminotransferase 16 U/L (0-31); Albumin Level 3.8 g/dL (3.5-5.0); Alkaline Phosphatase 102 U/L (39-117); Aspartate Amino Transferase 13 U/L (5-31); Bilirubin Total < 0.2 mg/dL (0.0-1.0); Calcium 9.3 mg/dL (8.4-10.2); Cholesterol 202 mg/dL; Creatinine Clr Calc Pharmacy 93.3; Estimated Glomerular Filt Rate > 60; Glucose Fasting 91 mg/dL (60-99); HDL Cholesterol 36 mg/dL; LDL Cholesterol Calculated 124 mg/dl; Total Protein 6.9 g/dL (6.5-8.0); Triglycerides 213 mg/dL
[2021-12-17 10:21] LABS: Thyroid Stimulating Hormone 2.77 uIU/mL (0.32-4.0)
[2021-12-17 10:30] LABS: Anion Gap 15 (12-20); Blood Urea Nitrogen 13 mg/dL (9-16); Carbon Dioxide 21 mmol/L (22-29); Chloride 109 mmol/L (96-108); Potassium 4.8 mmol/L (3.3-5.1); Sodium 140 mmol/L (135-145); Vitamin B12 381 pg/mL (200-900)
[2021-12-17] MEDS: Amphetamine Mixed Salts 20 MG TABLET PO (16:20)
--- NOTE | 2021-12-17 17:20 | P.PNPSI_ITS ---
Subjective Subjective Date of Service: 12/17/21 Reason For Visit: psychosis Subjective Notes: Phillips Warning Interim History: I spoke with pt's team. Per pt, Im doing okay, i'm adjusting. Had a hard time falling asleep, took trazodone last night but it didnt help. Asks for a higher dose. Says she misses her son. Wants testing for for ASD, discussed neurocognitive testing. Medication Compliance: Yes Side effects from medications: No Attending Groups: Yes Review of Systems Acute medical concerns: No Medical Review of Systems: unchanged Mental Status Exam Mental Status Exam Narrative: A&O. Well groomed, overweight, hospital attire, glasses. Good eye contact, attentive. No Tics or Tremors. No abnormal involuntary movements. Calm, cooperative, engaged. Non-pressured speech, spontaneous with regular rate and rhythm, normal volume and prosody. No prolonged speech latency or dysarthria. Mood is ?depressed,? affect is appropriate. Currently denies SI/SIB/HI upon inquiry. Denies A/VH or delusional thought content. Thoughts are coherent, organized. No known cognitive or memory impairment. Insight/ Judgment fair and adequate. Diagnostics Vital Signs (24Hr): Vital Signs - 24 hr 12/16/21 20:51 12/17/21 06:00 Temperature 97.7 F 97.8 F Pulse Rate 85 65 Respiratory Rate 16 18 Blood Pressure 142/74 H 126/59 L Pulse Oximetry 100 99 Oxygen Delivery Method Room Air Room Air BMI result Body Mass Index 47.2 Labs Results: 12/15/21 13:53 12/17/21 09:07 Labs: Laboratory Results - last 48 hr 12/15/21 12/15/21 12/15/21 14:28 14:28 20:02 Sodium Potassium Chloride Carbon Dioxide Anion Gap BUN Creatinine Estim Creat Clear Calc Estimated GFR Fasting Glucose Calcium Total Bilirubin AST ALT Alkaline Phosphatase Total Protein Albumin Triglycerides Cholesterol LDL Cholesterol, Calc HDL Cholesterol Vitamin B12 TSH Urine Color Yellow Urine Appearance Turbid Urine pH 6.0 Ur Specific [place] 1.020 Urine Protein Trace Urine Glucose (UA) Negative Urine Ketones Negative Urine Blood Negative Urine Nitrite Negative Ur Leukocyte Esterase Large (3+) H Urine RBC 3-5 H Urine WBC 21-50 H Ur Squamous Epith Cells >20 Urine Bacteria 4+ Hyaline Casts 3-5 Urine Test NEGATIVE COVID-19 ([facility]) Negative COVID-19 Clin Com See Note 12/17/21 12/17/21 09:07 09:07 Sodium 140 Potassium 4.8 D Chloride 109 H Carbon Dioxide 21 L Anion Gap 15 BUN 13 D Creatinine 1.03 Estim Creat Clear Calc 93.3 Estimated GFR > 60 Fasting Glucose 91 Calcium 9.3 Total Bilirubin < 0.2 AST 13 ALT 16 Alkaline Phosphatase 102 Total Protein 6.9 Albumin 3.8 Triglycerides 213 Cholesterol 202 LDL Cholesterol, Calc 124 HDL Cholesterol 36 Vitamin B12 381 TSH 2.77 Urine Color Urine Appearance Urine pH Ur Specific [place] Urine Protein Urine Glucose (UA) Urine Ketones Urine Blood Urine Nitrite Ur Leukocyte Esterase Urine RBC Urine WBC Ur Squamous Epith Cells Urine Bacteria Hyaline Casts Urine Test COVID-19 ([facility]) COVID-19 Clin Com Medications Medications Current Medications Acetaminophen (Acetaminophen 325 Mg Tablet) 650 mg PO Q6H PRN PRN Reason: Headache/Pain Mild Scale (1-3) Last Admin: 12/16/21 20:18 Dose: 650 mg Acetazolamide (Acetazolamide 250 Mg Tablet) 125 mg PO DAILY [facility] Last Admin: 12/17/21 09:58 Dose: 125 mg Acetazolamide (Acetazolamide 250 Mg Tablet) 250 mg PO 1700 [facility] Last Admin: 12/16/21 18:29 Dose: 250 mg Al Hydroxide/Mg Hydroxide (Magnesium Hydrox/Alum Hydrox 30 Ml Oral.Susp) 30 ml PO Q6H PRN PRN Reason: Heartburn/Nausea Amphetamine/Dextroamphetamine (Dextroamphetamine/Amphetamine Xr 10 Mg Cap.Er.24h) 30 mg PO DAILY [facility] Last Admin: 12/17/21 09:58 Dose: 30 mg Amphetamine/Dextroamphetamine (Amphetamine Mixed Salts 20 Mg Tablet) 20 mg PO DAILY@1500 [facility] Last Admin: 12/17/21 16:20 Dose: 20 mg Bupropion HCl (Bupropion Hcl Xl 150 Mg Tab.Er.24h) 150 mg PO DAILY [facility] Last Admin: 12/17/21 09:58 Dose: 150 mg Hydroxyzine HCl (Hydroxyzine Hcl 50 Mg Tablet) 50 mg PO Q6H PRN PRN Reason: Anxiety Lorazepam (Lorazepam 1 Mg Tablet) 0.5 - 1 mg PO DAILY PRN PRN Reason: anxiety attack Magnesium Hydroxide (Milk Of Magnesia 30 Ml Oral.Susp) 30 ml PO DAILY PRN PRN Reason: Constipation Naproxen (Naproxen 500 Mg Tablet) 500 mg PO Q12H PRN PRN Reason: menstrual pain Last Admin: 12/16/21 21:43 Dose: 500 mg Nicotine (Nicotine 21 Mg Patch.Td24) 21 mg TRANSDERMA DAILY [facility] Last Admin: 12/17/21 09:57 Dose: 21 mg Omeprazole (Omeprazole 20 Mg Capsule.Dr) 20 mg PO BID [facility] Last Admin: 12/17/21 09:58 Dose: 20 mg Trazodone HCl (Trazodone Hcl 50 Mg Tablet) 50 mg PO BEDTIME PRN PRN Reason: Insomnia Last Admin: 12/16/21 21:43 Dose: 50 mg Allergies Allergies Allergy/AdvReac Type Severity Reaction Status Date / Time lamotrigine [From LAMICTAL] Allergy Unknown RASH Unverified 11/21/19 17:55 Sulfa (Sulfonamide Allergy Unknown UNKNOWN, Unverified 11/21/19 17:55 Antibiotics) hives [SULFA (SULFONAMIDE ANTIBIOTICS)] From NOVOCAIN Allergy Severe HIVES Uncoded 11/21/19 17:55 Novocain Allergy Unknown hives Uncoded 04/16/19 00:00 Assessment & Plan Assessment & Plan (1) ADHD (attention deficit hyperactivity disorder): Status: Acute Code(s): F90.9 - Attention-deficit hyperactivity disorder, unspecified type (2) MDD (major depressive disorder), recurrent episode, moderate: Status: Acute Code(s): F33.1 - Major depressive disorder, recurrent, moderate Plan Nila is a 31 y.o. female who carries a dx of PTSD, MDD recurrent. She presented to [facility] due to recent recurrent thoughts of self-harm. Remote hx of IPLOC, last time was 10 yrs ago. Precipitating fx include that she and her bf and son (age 2) were recently kicked out of her mom?s house where they were staying after she had a ?huge fight? with her, now staying with her bf?s mom but there is not as much room there. Plan: Change vyvanse to adderall XR 30 mg daily due to hospital formulary. Pt reports hx of benefit on lexapro, celexa but stopped working over time. May consider venlafaxine, as she has not tried this. Pt has not trialed gabapentin, may help with nerve pain and agitation. Will defer to changes to primary psych team. 12/17: Start trial of venlafaxine 37.5 mg daily for sx of depression, anxiety, and PTSD. Will trial gabapentin 100 mg TID for anxiety, nerve pain. Consider d/cing bupropion. Q15 min safety checks, CV Monitor response to medications. Monitor for safety in the milieu. Discharge on stabilization. Patient seen. Chart reviewed. Discussed with team. Obtain collateral contact info?as needed I spent minutes with the patient and/or on the patient floor today, greater than?50% of which was spent counseling/coordinating care. Patient educated on: diagnosis, medication risk/benefits and therapeutic strategies Reason for contiued inpatient stay Substantial Risk for: med/psych decompensation
[2021-12-17] MEDS: acetaZOLAMIDE 250 MG TABLET PO (17:48)
[2021-12-17] MEDS: traZODone HCL 100 MG TABLET PO (22:01)
[2021-12-17] MEDS: Gabapentin 100 MG CAPSULE PO (22:01)
[2021-12-17 22:02] VITALS: BP 129/68; PULSE 80; RESP 18; TEMP 36.7; O2SAT 100
[2021-12-17] MEDS: NaPROXEN 500 MG TABLET PO (22:02)
--- NOTE | 2021-12-18 00:30 | PC.NURSE ---
Pt c/o pain between shoulder blades that was keeping her from sleeping. Notified immigration consultant and was told that she should follow up with outpatient provider.
[2021-12-18] MEDS: traZODone HCL 100 MG TABLET PO ×3 (00:42→23:46)
[2021-12-18] MEDS: hydrOXYzine HCL 50 MG TABLET PO ×2 (00:42→22:34)
[2021-12-18] MEDS: Acetaminophen 325 MG TABLET 650 MG PO ×2 (00:45→23:46)
[2021-12-18 09:00] VITALS: BP 95/55; PULSE 90; RESP 17; TEMP 36.8; O2SAT 98
[2021-12-18] MEDS: acetaZOLAMIDE 250 MG TABLET 125 MG PO (09:47)
[2021-12-18] MEDS: Omeprazole 20 MG CAPSULE.DR PO ×2 (09:47→22:35)
[2021-12-18] MEDS: Gabapentin 100 MG CAPSULE PO ×3 (09:48→22:34)
[2021-12-18] MEDS: Dextroamphetamine/Amphetamine XR 10 MG CAP.ER.24H 30 MG PO (09:48)
[2021-12-18] MEDS: buPROPion HCl XL 150 MG TAB.ER.24H PO (09:48)
[2021-12-18] MEDS: Venlafaxine HCl ER 37.5 MG CAP.ER.24H PO (09:48)
[2021-12-18] MEDS: Nicotine 21 MG PATCH.TD24 TRANSDERMA (09:51)
--- NOTE | 2021-12-18 15:16 | HO.PSYCHPN ---
Subjective Subjective Date of Service: 12/18/21 Reason For Visit: psychosis Interim History: calm, engaged, cooperative. difficulty sleeping but felt a little sedated this morning, likely from trazodone. nevertheless, she prefers to leave the dose as it is for now, 100 mg, and schedule it rather than have it PRN. no other complaints or requests. per staff, SI, recently evicted from her mother's house, now staying at her boyfriend's parents' house. effexor started. Mental Status Exam Mental Status Exam Narrative: A&O. Well groomed, overweight, glasses. Good eye contact, attentive. No Tics or Tremors. No abnormal involuntary movements. Calm, cooperative, engaged. Non-pressured speech, spontaneous with regular rate and rhythm, normal volume and prosody. No prolonged speech latency or dysarthria. Mood is ?depressed,? affect is appropriate. no SI/SIB/AVH expressed. Thoughts are coherent, organized. No known cognitive or memory impairment. Insight/ Judgment fair and adequate. Diagnostics Vital Signs (24Hr): Vital Signs - 24 hr 12/17/21 22:02 12/18/21 09:00 Temperature 98.0 F 98.3 F Pulse Rate 80 90 Respiratory Rate 18 17 Blood Pressure 129/68 95/55 L Pulse Oximetry 100 98 Oxygen Delivery Method Room Air Room Air BMI result Body Mass Index 47.2 Labs Results: 12/15/21 13:53 12/17/21 09:07 Labs: Laboratory Results - last 48 hr 12/17/21 12/17/21 09:07 09:07 Sodium 140 Potassium 4.8 D Chloride 109 H Carbon Dioxide 21 L Anion Gap 15 BUN 13 D Creatinine 1.03 Estim Creat Clear Calc 93.3 Estimated GFR > 60 Fasting Glucose 91 Calcium 9.3 Total Bilirubin < 0.2 AST 13 ALT 16 Alkaline Phosphatase 102 Total Protein 6.9 Albumin 3.8 Triglycerides 213 Cholesterol 202 LDL Cholesterol, Calc 124 HDL Cholesterol 36 Vitamin B12 381 TSH 2.77 Medications Medications Current Medications Acetaminophen (Acetaminophen 325 Mg Tablet) 650 mg PO Q6H PRN PRN Reason: Headache/Pain Mild Scale (1-3) Last Admin: 12/18/21 00:45 Dose: 650 mg Acetazolamide (Acetazolamide 250 Mg Tablet) 125 mg PO DAILY [facility] Last Admin: 12/18/21 09:47 Dose: 125 mg Acetazolamide (Acetazolamide 250 Mg Tablet) 250 mg PO 1700 [facility] Last Admin: 12/17/21 17:48 Dose: 250 mg Al Hydroxide/Mg Hydroxide (Magnesium Hydrox/Alum Hydrox 30 Ml Oral.Susp) 30 ml PO Q6H PRN PRN Reason: Heartburn/Nausea Amphetamine/Dextroamphetamine (Dextroamphetamine/Amphetamine Xr 10 Mg Cap.Er.24h) 30 mg PO DAILY [facility] Last Admin: 12/18/21 09:48 Dose: 30 mg Amphetamine/Dextroamphetamine (Amphetamine Mixed Salts 20 Mg Tablet) 20 mg PO DAILY@1500 [facility] Last Admin: 12/17/21 16:20 Dose: 20 mg Bupropion HCl (Bupropion Hcl Xl 150 Mg Tab.Er.24h) 150 mg PO DAILY [facility] Last Admin: 12/18/21 09:48 Dose: 150 mg Gabapentin (Gabapentin 100 Mg Capsule) 100 mg PO TID [facility] Last Admin: 12/18/21 09:48 Dose: 100 mg Hydroxyzine HCl (Hydroxyzine Hcl 50 Mg Tablet) 50 mg PO Q6H PRN PRN Reason: Anxiety Last Admin: 12/18/21 00:42 Dose: 50 mg Lorazepam (Lorazepam 1 Mg Tablet) 0.5 - 1 mg PO DAILY PRN PRN Reason: anxiety attack Magnesium Hydroxide (Milk Of Magnesia 30 Ml Oral.Susp) 30 ml PO DAILY PRN PRN Reason: Constipation Naproxen (Naproxen 500 Mg Tablet) 500 mg PO Q12H PRN PRN Reason: menstrual pain Last Admin: 12/17/21 22:02 Dose: 500 mg Nicotine (Nicotine 21 Mg Patch.Td24) 21 mg TRANSDERMA DAILY [facility] Last Admin: 12/18/21 09:51 Dose: 21 mg Omeprazole (Omeprazole 20 Mg Capsule.Dr) 20 mg PO BID [facility] Last Admin: 12/18/21 09:47 Dose: 20 mg Trazodone HCl (Trazodone Hcl 100 Mg Tablet) 100 mg PO BEDTIME [facility] Venlafaxine HCl (Venlafaxine Hcl Er 37.5 Mg Cap.Er.24h) 37.5 mg PO DAILY [facility] Last Admin: 12/18/21 09:48 Dose: 37.5 mg Allergies Allergies Allergy/AdvReac Type Severity Reaction Status Date / Time lamotrigine [From LAMICTAL] Allergy Unknown RASH Unverified 11/21/19 17:55 Sulfa (Sulfonamide Allergy Unknown UNKNOWN, Unverified 11/21/19 17:55 Antibiotics) hives [SULFA (SULFONAMIDE ANTIBIOTICS)] From NOVOCAIN Allergy Severe HIVES Uncoded 11/21/19 17:55 Novocain Allergy Unknown hives Uncoded 04/16/19 00:00 Assessment & Plan Assessment & Plan (1) ADHD (attention deficit hyperactivity disorder): Status: Acute Code(s): F90.9 - Attention-deficit hyperactivity disorder, unspecified type (2) MDD (major depressive disorder), recurrent episode, moderate: Status: Acute Code(s): F33.1 - Major depressive disorder, recurrent, moderate Plan Nila is a 31 y.o. female who carries a dx of PTSD, MDD recurrent. She presented to [facility] due to recent recurrent thoughts of self-harm. Remote hx of IPLOC, last time was 10 yrs ago. Precipitating fx include that she and her bf and son (age 2) were recently kicked out of her mom?s house where they were staying after she had a ?huge fight? with her, now staying with her bf?s mom but there is not as much room there. Plan: Change vyvanse to adderall XR 30 mg daily due to hospital formulary. Pt reports hx of benefit on lexapro, celexa but stopped working over time. May consider venlafaxine, as she has not tried this. Pt has not trialed gabapentin, may help with nerve pain and agitation. Will defer to changes to primary psych team. 12/17: Start trial of venlafaxine 37.5 mg daily for sx of depression, anxiety, and PTSD. Will trial gabapentin 100 mg TID for anxiety, nerve pain. Consider d/cing bupropion. Q15 min safety checks, CV Monitor response to medications. Monitor for safety in the milieu. Discharge on stabilization. Patient seen. Chart reviewed. Discussed with team. Obtain collateral contact info?as needed 12/18: continue current mgmt aside from scheduling trazodone 100 mg at HS. I spent ___15___ minutes with the patient and/or on the patient floor today, greater than?50% of which was spent counseling/coordinating care. Reason for contiued inpatient stay Substantial Risk for: harm to self, inability to function and rapid decompensation
[2021-12-18] MEDS: Amphetamine Mixed Salts 20 MG TABLET PO (15:37)
[2021-12-18] MEDS: acetaZOLAMIDE 250 MG TABLET PO (17:15)
[2021-12-18 22:34] VITALS: BP 126/75; PULSE 96; RESP 18; TEMP 36.8; O2SAT 100
[2021-12-18] MEDS: NaPROXEN 500 MG TABLET PO (22:34)
[2021-12-19 09:00] VITALS: BP 119/56; PULSE 80; RESP 18; TEMP 36.6; O2SAT 99
[2021-12-19] MEDS: Dextroamphetamine/Amphetamine XR 10 MG CAP.ER.24H 30 MG PO (09:53)
[2021-12-19] MEDS: Venlafaxine HCl ER 37.5 MG CAP.ER.24H PO (09:53)
[2021-12-19] MEDS: acetaZOLAMIDE 250 MG TABLET 125 MG PO (09:54)
[2021-12-19] MEDS: buPROPion HCl XL 150 MG TAB.ER.24H PO (09:56)
[2021-12-19] MEDS: Omeprazole 20 MG CAPSULE.DR PO ×2 (09:56→20:31)
[2021-12-19] MEDS: Gabapentin 100 MG CAPSULE PO ×3 (09:56→20:31)
[2021-12-19] MEDS: Nicotine 21 MG PATCH.TD24 TRANSDERMA (09:57)
[2021-12-19] MEDS: Amphetamine Mixed Salts 20 MG TABLET PO (14:52)
--- NOTE | 2021-12-19 15:10 | P.PNPSI_ITS ---
Subjective Subjective Date of Service: 12/19/21 Reason For Visit: psychosis Interim History: calm, cooperative. receiving visitor. meds reviewed, she was counseled to take HS meds as well as second dose of stimulant earlier so she would get to sleep earlier and sleep in less. mood better, denies side effects. per staff, reading, pleasant. med-compliant. poor sleep 2/2 pain. anx /10. had both trazodones. Mental Status Exam Mental Status Exam Narrative: A&O. Well groomed, overweight, glasses. Good eye contact, attentive. No Tics or Tremors. No abnormal involuntary movements. Calm, cooperative, engaged. Non- pressured speech, spontaneous with regular rate and rhythm, normal volume and prosody. No prolonged speech latency or dysarthria. Mood is ?better,? affect is appropriate. no SI/SIB/AVH expressed. Thoughts are coherent, organized. No known cognitive or memory impairment. Insight/ Judgment fair and adequate. Diagnostics Vital Signs (24Hr): Vital Signs - 24 hr 12/18/21 22:34 12/19/21 09:00 Temperature 98.3 F 97.8 F Pulse Rate 96 80 Respiratory Rate 18 18 Blood Pressure 126/75 119/56 L Pulse Oximetry 100 99 Oxygen Delivery Method Room Air Room Air BMI result Body Mass Index 47.2 Labs Results: 12/15/21 13:53 12/17/21 09:07 Medications Medications Current Medications Acetaminophen (Acetaminophen 325 Mg Tablet) 650 mg PO Q6H PRN PRN Reason: Headache/Pain Mild Scale (1-3) Last Admin: 12/18/21 23:46 Dose: 650 mg Acetazolamide (Acetazolamide 250 Mg Tablet) 125 mg PO DAILY [facility] Last Admin: 12/19/21 09:54 Dose: 125 mg Acetazolamide (Acetazolamide 250 Mg Tablet) 250 mg PO 1700 [facility] Last Admin: 12/18/21 17:15 Dose: 250 mg Al Hydroxide/Mg Hydroxide (Magnesium Hydrox/Alum Hydrox 30 Ml Oral.Susp) 30 ml PO Q6H PRN PRN Reason: Heartburn/Nausea Amphetamine/Dextroamphetamine (Dextroamphetamine/Amphetamine Xr 10 Mg Cap.Er.24h) 30 mg PO DAILY [facility] Last Admin: 12/19/21 09:53 Dose: 30 mg Amphetamine/Dextroamphetamine (Amphetamine Mixed Salts 20 Mg Tablet) 20 mg PO DAILY@1500 [facility] Last Admin: 12/19/21 14:52 Dose: 20 mg Bupropion HCl (Bupropion Hcl Xl 150 Mg Tab.Er.24h) 150 mg PO DAILY [facility] Last Admin: 12/19/21 09:56 Dose: 150 mg Gabapentin (Gabapentin 100 Mg Capsule) 100 mg PO TID [facility] Last Admin: 12/19/21 14:51 Dose: 100 mg Hydroxyzine HCl (Hydroxyzine Hcl 50 Mg Tablet) 50 mg PO Q6H PRN PRN Reason: Anxiety Last Admin: 12/18/21 22:34 Dose: 50 mg Lorazepam (Lorazepam 1 Mg Tablet) 0.5 - 1 mg PO DAILY PRN PRN Reason: anxiety attack Magnesium Hydroxide (Milk Of Magnesia 30 Ml Oral.Susp) 30 ml PO DAILY PRN PRN Reason: Constipation Naproxen (Naproxen 500 Mg Tablet) 500 mg PO Q12H PRN PRN Reason: menstrual pain Last Admin: 12/18/21 22:34 Dose: 500 mg Nicotine (Nicotine 21 Mg Patch.Td24) 21 mg TRANSDERMA DAILY [facility] Last Admin: 12/19/21 09:57 Dose: 21 mg Omeprazole (Omeprazole 20 Mg Capsule.Dr) 20 mg PO BID [facility] Last Admin: 12/19/21 09:56 Dose: 20 mg Trazodone HCl (Trazodone Hcl 100 Mg Tablet) 100 mg PO BEDTIME [facility] Last Admin: 12/18/21 23:46 Dose: 100 mg Venlafaxine HCl (Venlafaxine Hcl Er 37.5 Mg Cap.Er.24h) 37.5 mg PO DAILY [facility] Last Admin: 12/19/21 09:53 Dose: 37.5 mg Allergies Allergies Allergy/AdvReac Type Severity Reaction Status Date / Time lamotrigine [From LAMICTAL] Allergy Unknown RASH Unverified 11/21/19 17:55 Sulfa (Sulfonamide Allergy Unknown UNKNOWN, Unverified 11/21/19 17:55 Antibiotics) hives [SULFA (SULFONAMIDE ANTIBIOTICS)] From NOVOCAIN Allergy Severe HIVES Uncoded 11/21/19 17:55 Novocain Allergy Unknown hives Uncoded 04/16/19 00:00 Assessment & Plan Assessment & Plan (1) ADHD (attention deficit hyperactivity disorder): Status: Acute Code(s): F90.9 - Attention-deficit hyperactivity disorder, unspecified type (2) MDD (major depressive disorder), recurrent episode, moderate: Status: Acute Code(s): F33.1 - Major depressive disorder, recurrent, moderate Plan Nila is a 31 y.o. female who carries a dx of PTSD, MDD recurrent. She presented to [facility] due to recent recurrent thoughts of self-harm. Remote hx of IPLOC, last time was 10 yrs ago. Precipitating fx include that she and her bf and son (age 2) were recently kicked out of her mom?s house where they were staying after she had a ?huge fight? with her, now staying with her bf?s mom but there is not as much room there. Plan: Change vyvanse to adderall XR 30 mg daily due to hospital formulary. Pt reports hx of benefit on lexapro, celexa but stopped working over time. May consider venlafaxine, as she has not tried this. Pt has not trialed gabapentin, may help with nerve pain and agitation. Will defer to changes to primary psych team. 12/17: Start trial of venlafaxine 37.5 mg daily for sx of depression, anxiety, and PTSD. Will trial gabapentin 100 mg TID for anxiety, nerve pain. Consider d/cing bupropion. Q15 min safety checks, CV Monitor response to medications. Monitor for safety in the milieu. Discharge on stabilization. Patient seen. Chart reviewed. Discussed with team. Obtain collateral contact info?as needed 12/18: continue current mgmt aside from scheduling trazodone 100 mg at HS. 12/19: continue current mgmt. mood improved, no side effects from med changes. I spent ___15___ minutes with the patient and/or on the patient floor today, greater than?50% of which was spent counseling/coordinating care. Reason for contiued inpatient stay Substantial Risk for: harm to self, inability to function and rapid decompensation
[2021-12-19] MEDS: acetaZOLAMIDE 250 MG TABLET PO (16:51)
[2021-12-19 20:10] VITALS: BP 105/78; PULSE 112; RESP 16; TEMP 36.6; O2SAT 97
[2021-12-19] MEDS: traZODone HCL 100 MG TABLET PO (20:32)
[2021-12-20 08:20] VITALS: BP 105/68; PULSE 95; RESP 16; TEMP 36.8; O2SAT 98
[2021-12-20] MEDS: buPROPion HCl XL 150 MG TAB.ER.24H PO (09:27)
[2021-12-20] MEDS: Nicotine 21 MG PATCH.TD24 TRANSDERMA (09:27)
[2021-12-20] MEDS: Dextroamphetamine/Amphetamine XR 10 MG CAP.ER.24H 30 MG PO (09:27)
[2021-12-20] MEDS: acetaZOLAMIDE 250 MG TABLET 125 MG PO (09:28)
[2021-12-20] MEDS: Venlafaxine HCl ER 37.5 MG CAP.ER.24H PO (09:28)
[2021-12-20] MEDS: Gabapentin 100 MG CAPSULE PO ×2 (09:28→15:13)
[2021-12-20] MEDS: Omeprazole 20 MG CAPSULE.DR PO ×2 (09:29→20:44)
--- NOTE | 2021-12-20 15:12 | P.PNPSI_ITS ---
Subjective Subjective Date of Service: 12/20/21 Reason For Visit: psychosis Interim History: pt c/o continuing to have a hard time falling asleep. agrees to increase HS dose of gabapentin. also discussed use of prazosin, but BP on the low side and to be conservative we decide to increase HS gabapentin to 300 mg. planning for weds DC. mood improved since admission. Mental Status Exam Mental Status Exam Narrative: A&O. Well groomed, overweight, glasses. Good eye contact, attentive. No Tics or Tremors. No abnormal involuntary movements. Calm, cooperative, engaged. Non- pressured speech, spontaneous with regular rate and rhythm, normal volume and prosody. No prolonged speech latency or dysarthria. Mood is ?better,? affect is appropriate. no SI/SIB/AVH expressed. Thoughts are coherent, organized. No known cognitive or memory impairment. Insight/ Judgment fair and adequate. Diagnostics Vital Signs (24Hr): Vital Signs - 24 hr 12/19/21 20:10 12/20/21 08:20 Temperature 97.8 F 98.2 F Pulse Rate 112 H 95 Respiratory Rate 16 16 Blood Pressure 105/78 105/68 Pulse Oximetry 97 98 Oxygen Delivery Method Room Air Room Air BMI result Body Mass Index 47.2 Labs Results: 12/15/21 13:53 12/17/21 09:07 Medications Medications Current Medications Acetaminophen (Acetaminophen 325 Mg Tablet) 650 mg PO Q6H PRN PRN Reason: Headache/Pain Mild Scale (1-3) Last Admin: 12/18/21 23:46 Dose: 650 mg Acetazolamide (Acetazolamide 250 Mg Tablet) 125 mg PO DAILY [facility] Last Admin: 12/20/21 09:28 Dose: 125 mg Acetazolamide (Acetazolamide 250 Mg Tablet) 250 mg PO 1700 [facility] Last Admin: 12/19/21 16:51 Dose: 250 mg Al Hydroxide/Mg Hydroxide (Magnesium Hydrox/Alum Hydrox 30 Ml Oral.Susp) 30 ml PO Q6H PRN PRN Reason: Heartburn/Nausea Amphetamine/Dextroamphetamine (Dextroamphetamine/Amphetamine Xr 10 Mg Cap.Er.24h) 30 mg PO DAILY [facility] Last Admin: 12/20/21 09:27 Dose: 30 mg Amphetamine/Dextroamphetamine (Amphetamine Mixed Salts 20 Mg Tablet) 20 mg PO DAILY@1500 [facility] Last Admin: 12/19/21 14:52 Dose: 20 mg Bupropion HCl (Bupropion Hcl Xl 150 Mg Tab.Er.24h) 150 mg PO DAILY [facility] Last Admin: 12/20/21 09:27 Dose: 150 mg Gabapentin (Gabapentin 100 Mg Capsule) 100 mg PO BID@0900,1500 [facility] Gabapentin (Gabapentin 300 Mg Capsule) 300 mg PO BEDTIME [facility] Hydroxyzine HCl (Hydroxyzine Hcl 50 Mg Tablet) 50 mg PO Q6H PRN PRN Reason: Anxiety Last Admin: 12/18/21 22:34 Dose: 50 mg Lorazepam (Lorazepam 1 Mg Tablet) 0.5 - 1 mg PO DAILY PRN PRN Reason: anxiety attack Magnesium Hydroxide (Milk Of Magnesia 30 Ml Oral.Susp) 30 ml PO DAILY PRN PRN Reason: Constipation Naproxen (Naproxen 500 Mg Tablet) 500 mg PO Q12H PRN PRN Reason: menstrual pain Last Admin: 12/18/21 22:34 Dose: 500 mg Nicotine (Nicotine 21 Mg Patch.Td24) 21 mg TRANSDERMA DAILY [facility] Last Admin: 12/20/21 09:27 Dose: 21 mg Omeprazole (Omeprazole 20 Mg Capsule.Dr) 20 mg PO BID [facility] Last Admin: 12/20/21 09:29 Dose: 20 mg Trazodone HCl (Trazodone Hcl 100 Mg Tablet) 100 mg PO BEDTIME [facility] Last Admin: 12/19/21 20:32 Dose: 100 mg Venlafaxine HCl (Venlafaxine Hcl Er 37.5 Mg Cap.Er.24h) 37.5 mg PO DAILY [facility] Last Admin: 12/20/21 09:28 Dose: 37.5 mg Allergies Allergies Allergy/AdvReac Type Severity Reaction Status Date / Time lamotrigine [From LAMICTAL] Allergy Unknown RASH Unverified 11/21/19 17:55 Sulfa (Sulfonamide Allergy Unknown UNKNOWN, Unverified 11/21/19 17:55 Antibiotics) hives [SULFA (SULFONAMIDE ANTIBIOTICS)] From NOVOCAIN Allergy Severe HIVES Uncoded 11/21/19 17:55 Novocain Allergy Unknown hives Uncoded 04/16/19 00:00 Assessment & Plan Assessment & Plan (1) ADHD (attention deficit hyperactivity disorder): Status: Acute Code(s): F90.9 - Attention-deficit hyperactivity disorder, unspecified type (2) MDD (major depressive disorder), recurrent episode, moderate: Status: Acute Code(s): F33.1 - Major depressive disorder, recurrent, moderate Plan Nila is a 31 y.o. female who carries a dx of PTSD, MDD recurrent. She presented to [facility] due to recent recurrent thoughts of self-harm. Remote hx of IPLOC, last time was 10 yrs ago. Precipitating fx include that she and her bf and son (age 2) were recently kicked out of her mom?s house where they were staying after she had a ?huge fight? with her, now staying with her bf?s mom but there is not as much room there. Plan: Change vyvanse to adderall XR 30 mg daily due to hospital formulary. Pt reports hx of benefit on lexapro, celexa but stopped working over time. May consider venlafaxine, as she has not tried this. Pt has not trialed gabapentin, may help with nerve pain and agitation. Will defer to changes to primary psych team. 12/17: Start trial of venlafaxine 37.5 mg daily for sx of depression, anxiety, and PTSD. Will trial gabapentin 100 mg TID for anxiety, nerve pain. Consider d/cing bupropion. Q15 min safety checks, CV Monitor response to medications. Monitor for safety in the milieu. Discharge on stabilization. Patient seen. Chart reviewed. Discussed with team. Obtain collateral contact info?as needed 12/18: continue current mgmt aside from scheduling trazodone 100 mg at HS. 12/19: continue current mgmt. mood improved, no side effects from med changes. 12/20: increase HS gabapentin to 300 mg for sleep. feeling improved from admission, planning for weds D/C. [place] paperwork completed. I spent ___35___ minutes with the patient and/or on the patient floor today, greater than?50% of which was spent counseling/coordinating care. Reason for contiued inpatient stay Substantial Risk for: inability to function and rapid decompensation
[2021-12-20] MEDS: Amphetamine Mixed Salts 20 MG TABLET PO (15:13)
[2021-12-20] MEDS: acetaZOLAMIDE 250 MG TABLET PO (17:59)
[2021-12-20 20:18] VITALS: BP 124/59; PULSE 111; RESP 16; TEMP 36.6; O2SAT 97
[2021-12-20] MEDS: Gabapentin 300 MG CAPSULE PO (20:44)
[2021-12-20] MEDS: traZODone HCL 100 MG TABLET PO (20:44)
[2021-12-21 09:32] VITALS: BP 118/76; PULSE 85; RESP 18; TEMP 36.7; O2SAT 97
[2021-12-21] MEDS: Dextroamphetamine/Amphetamine XR 10 MG CAP.ER.24H 30 MG PO (09:33)
[2021-12-21] MEDS: Gabapentin 100 MG CAPSULE PO ×2 (09:33→15:57)
[2021-12-21] MEDS: Venlafaxine HCl ER 37.5 MG CAP.ER.24H PO (09:33)
[2021-12-21] MEDS: Omeprazole 20 MG CAPSULE.DR PO ×2 (09:33→21:18)
[2021-12-21] MEDS: buPROPion HCl XL 150 MG TAB.ER.24H PO (09:33)
[2021-12-21] MEDS: acetaZOLAMIDE 250 MG TABLET 125 MG PO (09:34)
[2021-12-21] MEDS: Nicotine 21 MG PATCH.TD24 TRANSDERMA (09:36)
--- NOTE | 2021-12-21 10:53 | PM.PSYDC ---
DS: Providers Provider Date of Service: 12/21/21 Date of admission: 12/16/21 14:53 Primary care physician: Nonstaff Physician DS: Diagnosis Discharge Diagnosis (1) ADHD (attention deficit hyperactivity disorder): Status: Acute (2) MDD (major depressive disorder), recurrent episode, moderate: Status: Acute DS: Medications Discharge Medications Home Medications: Home Medications Medication Instructions Recorded Confirmed acetazolamide 250 mg tablet 125 mg PO QAM 12/15/21 12/15/21 acetazolamide 250 mg tablet 250 mg PO 1700 12/15/21 12/15/21 dextroamphetamine-amphetamine ER 1 cap PO QAM 12/15/21 12/15/21 20 mg 24hr capsule,extend release (Adderall XR) lisdexamfetamine 70 mg capsule 1 cap PO QAM 12/15/21 12/15/21 (Vyvanse) lorazepam 1 mg tablet 0.5 - 1 tab PO DAILY PRN anxiety 12/15/21 12/15/21 attack pantoprazole 40 mg tablet,delayed 0.5 tab PO BID 12/15/21 12/15/21 release bupropion HCl 150 mg 24 hr tablet, 1 tab PO QAM 12/16/21 12/16/21 extended release Previous Rx's Medication Instructions Recorded gabapentin 100 mg capsule 100 mg PO BID 30 days #60 caps 12/21/21 gabapentin 300 mg capsule 300 mg PO BEDTIME 30 days #30 caps 12/21/21 trazodone 100 mg tablet 100 mg PO BEDTIME 30 days #30 tabs 12/21/21 venlafaxine 37.5 mg 37.5 mg PO DAILY 30 days #30 caps 12/21/21 capsule,extended release 24 hr Mental Status Exam Mental Status Exam Narrative: A&O. Well groomed, overweight, glasses. Good eye contact, attentive. No Tics or Tremors. No abnormal involuntary movements. Calm, cooperative, engaged. Non-pressured speech, spontaneous with regular rate and rhythm, normal volume and prosody. No prolonged speech latency or dysarthria. Mood is ?good,? affect is appropriate. no SI/SIBI/HI/AVH. Thoughts are coherent, organized. No known cognitive or memory impairment. Insight/ Judgment fair and adequate. Data Data Completed and Pending Completed studies during hospitalization [Text1]: 12/15/21 12/15/2112/15/22 13:53 13:53 14:21 WBC 10.5 RBC 4.37 Hgb 12.6 Hct 38.4 MCV 87.9 MCH 28.8 MCHC 32.8 RDW 14.3 Plt Count 316 MPV 9.3 L Immature Gran % (Auto) 0.2 Neut % (Auto) 64.5 Lymph % (Auto) 26.9 Baker % (Auto) 5.1 Eos % (Auto) 2.8 Baso % (Auto) 0.5 Lymph # (Auto) 2.8 Baker # (Auto) 0.5 Eos # (Auto) 0.3 Baso # (Auto) 0.1 Abs Immat Gran (auto) 0.02 Absolute Neuts (auto) 6.8 Absolute Nucleated RBC 0.000 Nucleated RBC % (auto) 0.0 Sodium 141 Potassium 3.9 Chloride 105 Carbon Dioxide 24 Anion Gap 16 BUN 7 L Creatinine 0.82 Estim Creat Clear Calc 117.2 Estimated GFR > 60 Random Glucose 106 Fasting Glucose Calcium 9.6 Total Bilirubin 0.2 AST 13 ALT 13 Alkaline Phosphatase 113 Total Protein 7.3 Albumin 4.0 Triglycerides Cholesterol LDL Cholesterol, Calc HDL Cholesterol Vitamin B12 TSH Urine Color Urine Appearance Urine pH Ur Specific [place] Urine Protein Urine Glucose (UA) Urine Ketones Urine Blood Urine Nitrite Ur Leukocyte Esterase Urine RBC Urine WBC Ur Squamous Epith Cells Urine Bacteria Hyaline Casts Urine Test Salicylates < 5.0 L Urine Opiates Screen Not Detected Urine Fentanyl Screen Not Detected Acetaminophen < 1 Ur Barbiturates Screen Not Detected Ur Phencyclidine Scrn Not Detected Ur Amphetamines Screen POSITIVE H U Benzodiazepines Scrn Not Detected Urine Cocaine Screen Not Detected U Marijuana (THC) Screen Not Detected Ethyl Alcohol < 10 COVID-19 ([facility]) COVID-19 Clin Com 12/15/21 12/15/21 12/15/21 14:28 14:28 20:02 WBC RBC Hgb Hct MCV MCH MCHC RDW Plt Count MPV Immature Gran % (Auto) Neut % (Auto) Lymph % (Auto) Baker % (Auto) Eos % (Auto) Baso % (Auto) Lymph # (Auto) Baker # (Auto) Eos # (Auto) Baso # (Auto) Abs Immat Gran (auto) Absolute Neuts (auto) Absolute Nucleated RBC Nucleated RBC % (auto) Sodium Potassium Chloride Carbon Dioxide Anion Gap BUN Creatinine Estim Creat Clear Calc Estimated GFR Random Glucose Fasting Glucose Calcium Total Bilirubin AST ALT Alkaline Phosphatase Total Protein Albumin Triglycerides Cholesterol LDL Cholesterol, Calc HDL Cholesterol Vitamin B12 TSH Urine Color Yellow Urine Appearance Turbid Urine pH 6.0 Ur Specific [place] 1.020 Urine Protein Trace Urine Glucose (UA) Negative Urine Ketones Negative Urine Blood Negative Urine Nitrite Negative Ur Leukocyte Esterase Large (3+) H Urine RBC 3-5 H Urine WBC 21-50 H Ur Squamous Epith Cells >20 Urine Bacteria 4+ Hyaline Casts 3-5 Urine Test NEGATIVE Salicylates Urine Opiates Screen Urine Fentanyl Screen Acetaminophen Ur Barbiturates Screen Ur Phencyclidine Scrn Ur Amphetamines Screen U Benzodiazepines Scrn Urine Cocaine Screen U Marijuana (THC) Screen Ethyl Alcohol COVID-19 ([facility]) Negative COVID-19 Clin Com See Note 12/17/21 12/17/21 09:07 09:07 WBC RBC Hgb Hct MCV MCH MCHC RDW Plt Count MPV Immature Gran % (Auto) Neut % (Auto) Lymph % (Auto) Baker % (Auto) Eos % (Auto) Baso % (Auto) Lymph # (Auto) Baker # (Auto) Eos # (Auto) Baso # (Auto) Abs Immat Gran (auto) Absolute Neuts (auto) Absolute Nucleated RBC Nucleated RBC % (auto) Sodium 140 Potassium 4.8 D Chloride 109 H Carbon Dioxide 21 L Anion Gap 15 BUN 13 D Creatinine 1.03 Estim Creat Clear Calc 93.3 Estimated GFR > 60 Random Glucose Fasting Glucose 91 Calcium 9.3 Total Bilirubin < 0.2 AST 13 ALT 16 Alkaline Phosphatase 102 Total Protein 6.9 Albumin 3.8 Triglycerides 213 Cholesterol 202 LDL Cholesterol, Calc 124 HDL Cholesterol 36 Vitamin B12 381 TSH 2.77 Urine Color Urine Appearance Urine pH Ur Specific [place] Urine Protein Urine Glucose (UA) Urine Ketones Urine Blood Urine Nitrite Ur Leukocyte Esterase Urine RBC Urine WBC Ur Squamous Epith Cells Urine Bacteria Hyaline Casts Urine Test Salicylates Urine Opiates Screen Urine Fentanyl Screen Acetaminophen Ur Barbiturates Screen Ur Phencyclidine Scrn Ur Amphetamines Screen U Benzodiazepines Scrn Urine Cocaine Screen U Marijuana (THC) Screen Ethyl Alcohol COVID-19 ([facility]) COVID-19 Clin Com DS: Summary Hospital Course Hospital Course: per 12/16 admission note: Nila is a 31 y.o. female who carries a dx of PTSD, MDD recurrent. She presented to [facility] due to recent recurrent thoughts of self-harm. Remote hx of IPLOC, last time was 10 yrs ago. Precipitating fx include that she and her bf and son (age 2) were recently kicked out of her mom?s house where they were staying after she had a ?huge fight? with her, now staying with her bf?s mom but there is not as much room there. No substance use or alcohol abuse. I spoke with pt this evening. She reports she stopped taking her prozac and latuda 2 months ago due to ?bad side effects,? i.e. prozac caused bruxism and latuda ?made me feel really glitchy.? Says she had to move out of her mom?s house last Monday because she was making allegations against her and threatening to call [facility], which ?culminated in a huge fight.? She reports her anxiety and depression can be ?debilitating,? i.e. only gets out of bed to help care for her son. Her bf is helpful and a good support. She reports taking vyvanse 70 mg in the morning and 20 mg booster in the afternoon, ?those meds help significantly,? has noticed ?it does help with my mood.? Pt does not endorse manic or hypomanic episodes. Says she experiences ?mainly severe depression to a less severe depression.? She gets irritable, ?very agitated almost at nothing.? No aggression, ?very quick to snap? at bf for ?stupid things,? i.e. his tone of voice. Denies hallucinations. Reports hypersomnia, ?I can sleep like a champ,? daytime energy is low. Denies current SI, says she feels safe. Past Psychiatric History: -Remote hx of IPLOC, last at Organ age 21 -Reports hx of seasonal affective do, says her OP provider Ravinder Umaña will increase her bupropion to 300 mg during winter months but she has not really noticed a difference. -Past meds: lexapro (lack of efficacy, took the edge off), celexa (worked really well and then it just stopped working), cymbalta, zoloft (in childhood, unable to recall), lamictal (rash), trileptal (doesn?t remember effects), seroquel (in childhood), trazodone (too sedating), risperdal (?made me crazy?). Medical Evaluation Reviewed: Yes [facility] Medical History?(Updated 12/17/21 @ 05:47 by Any Sosa NP) Acid reflux ADHD Anxiety Bipolar 1 disorder Depression PTSD (post-traumatic stress disorder) Narrative: -Pt reports she has pseudotumor cerebri syndrome, diagnosed in 2012, causes nerve pain, headaches, has had almost 20 spinal taps. Migraines are less frequent on diamox. Social History: -Pt lives with her son (age 2, has autism, in E[place], head start), boyfriend (works as desk clerks supervisor, together 5 yrs, father of her son), and boyfriend's mother. 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 Graduated high school. Precis: Nila is a 31 y.o. female who carries a dx of PTSD, MDD recurrent. She presented to [facility] due to recent recurrent thoughts of self-harm. Remote hx of IPLOC, last time was 10 yrs ago. Precipitating fx include that she and her bf and son (age 2) were recently kicked out of her mom?s house where they were staying after she had a ?huge fight? with her, now staying with her bf?s mom but there is not as much room there. 12/16: Change vyvanse to adderall XR 30 mg daily due to hospital formulary. Pt reports hx of benefit on lexapro, celexa but stopped working over time. May consider venlafaxine, as she has not tried this. Pt has not trialed gabapentin, may help with nerve pain and agitation. Will defer to changes to primary psych team. 12/17: Start trial of venlafaxine 37.5 mg daily for sx of depression, anxiety, and PTSD. Will trial gabapentin 100 mg TID for anxiety, nerve pain. Consider d/cing bupropion. 12/18: continue current mgmt aside from scheduling trazodone 100 mg at HS. 12/19: continue current mgmt.? mood improved, no side effects from med changes. 12/20: increase HS gabapentin to 300 mg for sleep. ? feeling improved from admission, planning for weds D/C.? FMLA paperwork completed. 12/21: stable, safe. planning for DC tomorrow. aftercare in place. Time Spent with Patient Time attestation: Total time spent providing and/or coordinating discharge services: Time spent: Greater than 30 minutes Discharge Plan Discharge Anticipated Discharge Date/Time: 12/22/21 09:30 Patient Disposition: Home, Self-Care Discharge Diagnosis: Major Depressive Disorder, Moderate, Recurrent Referrals: Ravinder Umaña (Psychiatry) [Other] - 01/06/22 8:00 am (TELEHEALTH APPOINTMENT) Partial Hospitalization Program (PHP) [Other] - 1 Week (Please follow up with PHP in the future, at the number listed above, if you are interested in participating in the program) Mica Hutchins (Therapy) [Other] - 12/24/21 9:30 am (IN OFFICE APPOINTMENT) [facility] [Provider Group] - 1 Week Discharge Medications: New gabapentin 300 mg Capsule 300 mg PO BEDTIME 30 Days Qty: 30 0RF gabapentin 100 mg Capsule 100 mg PO BID 30 Days Qty: 60 0RF Rx Instructions: take at 0900 and 1500 venlafaxine 37.5 mg Capsule,Extended Release 24hr 37.5 mg PO DAILY 30 Days Qty: 30 0RF trazodone 100 mg Tablet 100 mg PO BEDTIME 30 Days Qty: 30 0RF Continued acetazolamide 250 mg tablet 125 mg PO QAM dextroamphetamine-amphetamine [Adderall XR] 20 mg capsule,extended release 24hr 1 cap PO QAM pantoprazole 40 mg tablet,delayed release (DR/EC) 0.5 tab PO BID lorazepam 1 mg tablet 0.5 - 1 tab PO DAILY PRN (Reason: anxiety attack) Vyvanse 70 mg capsule 1 cap PO QAM acetazolamide 250 mg tablet 250 mg PO 1700 bupropion HCl 150 mg tablet extended release 24 hr 1 tab PO QAM Discharge Orders: Discharge Order (Routine); Ordered 12/22/21 Ordered By: Krunal Holland Diet: Advance to usual diet Activity on Discharge: As tolerated Stand Alone Forms: Patient Portal Discharge page Care Plan Goals: remain safe and stable in the outpatient treatment setting Health Concerns: GERD Pseudotumor Cerebri Plan of Treatment: take medications as prescribed, attend appointments as scheduled Assessment: not at imminent risk of harm to self or others
[2021-12-21 11:34] LABS: COVID-19 Test Negative (Negative); IDNOW Serial# 9DD0AD1C
[2021-12-21] MEDS: NaPROXEN 500 MG TABLET PO (11:52)
[2021-12-21] MEDS: Amphetamine Mixed Salts 20 MG TABLET PO (15:57)
[2021-12-21] MEDS: acetaZOLAMIDE 250 MG TABLET PO (17:56)
[2021-12-21] MEDS: Gabapentin 300 MG CAPSULE PO (21:17)
[2021-12-21] MEDS: traZODone HCL 100 MG TABLET PO (21:18)
[2021-12-21 21:24] VITALS: BP 121/67; PULSE 102; TEMP 36.6; O2SAT 99
[2021-12-22 08:00] VITALS: BP 114/72; PULSE 97; RESP 18; TEMP 36.1; O2SAT 97
[2021-12-22] MEDS: Omeprazole 20 MG CAPSULE.DR PO (08:00)
[2021-12-22] MEDS: Gabapentin 100 MG CAPSULE PO (08:00)
[2021-12-22] MEDS: acetaZOLAMIDE 250 MG TABLET 125 MG PO (08:00)
[2021-12-22] MEDS: Dextroamphetamine/Amphetamine XR 10 MG CAP.ER.24H 30 MG PO (08:00)
[2021-12-22] MEDS: Venlafaxine HCl ER 37.5 MG CAP.ER.24H PO (08:00)
[2021-12-22] MEDS: buPROPion HCl XL 150 MG TAB.ER.24H PO (08:00)
[2021-12-22] MEDS: NaPROXEN 500 MG TABLET PO (08:30)
== END 2021-12-22 09:21 | disposition home or self-care (01) | DRG 751 ==
LOC: HO.ED 12-16 15:00 → HO.PADLT16 12-16 15:03
PROVIDERS: Physician Assistant Medical; Social Worker; Admitting Provider Psychiatry & Neurology Psychiatry; Emergency Provider Student in an Organized Health Care Education/Training Program; Visit Provider Psychiatry & Neurology Psychiatry
DX: F33.1 Major depressive disorder, recurrent, moderate (principal); R45.851 Suicidal ideations; F17.290 Nicotine dependence, other tobacco product, uncomplicated; F43.10 Post-traumatic stress disorder, unspecified; F90.9 Attention-deficit hyperactivity disorder, unspecified type; K21.9 Gastro-esophageal reflux disease without esophagitis; Z20.822 Contact with and (suspected) exposure to COVID-19; Z23 Encounter for immunization; Z88.2 Allergy status to sulfonamides; Z88.8 Allergy status to other drugs, medicaments and biological substances; Z79.899 Other long term (current) drug therapy
CPT/HCPCS: 36415; 80053; 80061; 80143; 80179; 80307; 81001; 81025; 82077; 82607; 84443; 85025; 87635; 90686; 90792; 99285